=== PATIENT | male | born 1950 | race Caucasian/White ===

== ENCOUNTER 2021-02-09 18:10 | Emergency (ER) | payer MEDICARE, OTHER ==
[2021-02-09] MEDS ORDERED: CEPHALEXIN500 M1 PO (18:51)
== END 2021-02-09 19:30 | disposition home or self-care (01) ==
LOC: ER1 18:10
DX: S01.81XA Laceration without foreign body of other part of head, initial encounter (principal); I10 Essential (primary) hypertension; E10.9 Type 1 diabetes mellitus without complications; W18.40XA Slipping, tripping and stumbling without falling, unspecified, initial encounter; Y92.009 Unspecified place in unspecified non-institutional (private) residence as the place of occurrence of the external cause
CPT/HCPCS: 12013; 99283